=== PATIENT | female | born 1970 | race Hispanic/Latino ===

== ENCOUNTER 2019-04-16 23:49 | Emergency (ER) | payer OTHER ==
[2019-04-17] MEDS ORDERED: ACETAMINOPHEN EXTRA STRENGTH 500 MG TABLET ONE (00:13)
[2019-04-17 00:38] LABS: BASOPHILS % (AUTO) 0.5 % (0.0-5.0); EOSINOPHILS % (AUTO) 1.7 % (0.0-8.0); HEMATOCRIT 35.7 % (36-48); LYMPHOCYTES % (AUTO) 17.1 % (21.0-51.0); MEAN CORPUSCULAR HGB CONC 34.1 g/dL (32.0-36.0); MONOCYTES % (AUTO) 10.7 % (3.0-13.0); PLATELET COUNT (AUTO) 234 K/uL (130-400); RED BLOOD CELL COUNT(AUTO) 4.06 MIL/uL (4.00-5.50); RED CELL DISTRIBUTION WIDTH 14.3 % (11.0-15.5); WHITE BLOOD COUNT (AUTO) 12.8 K/uL (4.8-10.8)
[2019-04-17 00:44] LABS: CREATININE 0.7 mg/dL (0.5-1.5); POTASSIUM 3.3 mmol/L (3.5-5.1)
[2019-04-17 00:49] LABS: ALBUMIN 3.6 g/dL (3.5-5.0); BILIRUBIN,TOTAL 0.9 mg/dL (0.2-1.0); TOTAL PROTEIN, SERUM 7.1 g/dL (6.0-8.3)
[2019-04-17 01:06] LABS: B-TYPE NATRIURETIC PEPTIDE 88 pg/mL (0-100)
[2019-04-17 01:18] LABS: APPEARANCE,URINE Clear (CLEAR); BILIRUBIN,URINE Negative (NEGATIVE); COLOR,URINE Yellow (YELLOW); GLUCOSE, URINE (UA) Negative (NEGATIVE); HCG,QUAL RESULT NEGATIVE (NEGATIVE); KETONES,URINE Trace mg/dL (NEGATIVE); LEUKOCYTE ESTERASE ,URINE Negative (NEGATIVE); NITRATE,URINE Negative (NEGATIVE); OCCULT BLOOD,URINE Small (NEGATIVE); PROTEIN,URINE Negative (NEGATIVE)
[2019-04-17 01:30] LABS: BACTERIA,URINE Few /HPF (None Seen); WBC,URINE 0-1 /HPF (0-1)
[2019-04-17 01:31] LABS: CALCIUM OXALATE CRYSTALS,UR Moderate /LPF (None Seen); MUCUS,URINE Few LPF (None Seen)
[2019-04-17] MEDS ORDERED: POTASSIUM CHLORIDE 20 MEQ ERTAB PO ONE (03:12)
[2019-04-17] MEDS ORDERED: IBUPROFEN 400 MG TABLET ONE (03:13)
[2019-04-17] MEDS ORDERED: IBUPROFEN 200 MG TAB ONE (03:13)
== END 2019-04-17 03:30 | disposition home or self-care (01) ==
LOC: EDH 23:49
DX: B34.9 Viral infection, unspecified (principal); R50.9 Fever, unspecified; Z90.49 Acquired absence of other specified parts of digestive tract; Z98.890 Other specified postprocedural states
CPT/HCPCS: 36415; 71045; 80053; 81001; 81025; 83880; 85025; 87804

== ENCOUNTER 2021-02-16 10:31 | Inpatient (IN) | payer OTHER ==
[2021-02-16 11:19] LABS: BASOPHILS % (AUTO) 0.8 % (0.0-5.0); EOSINOPHILS % (AUTO) 1.6 % (0.0-8.0); HEMATOCRIT 38.3 % (36-48); LYMPHOCYTES % (AUTO) 34.2 % (21.0-51.0); MEAN CORPUSCULAR HEMOGLOBIN 29.1 pg (27.0-33.0); MEAN CORPUSCULAR HGB CONC 33.2 g/dL (32.0-36.0); MEAN CORPUSCULAR VOLUME 87.8 fL (79-99); NEUTROPHILS % (AUTO) 54.9 % (40.0-77.0); PLATELET COUNT (AUTO) 229 K/uL (130-400); RED BLOOD CELL COUNT(AUTO) 4.36 MIL/uL (4.00-5.50); RED CELL DISTRIBUTION WIDTH 13.9 % (11.0-15.5); WHITE BLOOD COUNT (AUTO) 8.9 K/uL (4.8-10.8)
[2021-02-16 11:23] LABS: CREATININE 0.6 mg/dL (0.5-1.5); POTASSIUM 3.5 mmol/L (3.5-5.1)
[2021-02-16 11:28] LABS: ALBUMIN 4.2 g/dL (3.5-5.0); BILIRUBIN,TOTAL 0.7 mg/dL (0.2-1.0); TOTAL PROTEIN, SERUM 8.2 g/dL (6.0-8.3)
[2021-02-16 11:57] LABS: B-TYPE NATRIURETIC PEPTIDE 137 pg/mL (0-100)
[2021-02-16] MEDS ORDERED: ASPIRIN 81MG TAB.CHEW ONE (13:30)
[2021-02-16] MEDS ORDERED: HEPARIN SODIUM 5000UNIT/ML 1ML VIAL ONE (16:26)
[2021-02-16] MEDS ORDERED: ACETAMINOPHEN 325 MG TAB ONE ×2 (16:28→23:18)
[2021-02-16] MEDS ORDERED: HEPARIN 25000 UNITS/250 ML D5W 250 ML IV ONE (16:28)
[2021-02-16] MEDS ORDERED: SODIUM CHLORIDE 0.9% 500ML 500 ML IV SCH (16:30)
[2021-02-16] MEDS ORDERED: ONDANSETRON HCL 4 MG/2 ML VIAL IVP PRN (16:45)
[2021-02-16] MEDS ORDERED: HEPARIN 25000 UNITS/D5W 250ML IV SCH (16:45)
[2021-02-16] MEDS ORDERED: PERFLUTREN PROTEIN-A MICROSPHR 0.22 MG/ML VIAL IV ONE (17:00)
[2021-02-16] MEDS ORDERED: FUROSEMIDE 10 MG/ML 2ML VIAL ONE (17:24)
[2021-02-16 17:49] LABS: BASOPHILS % (AUTO) 0.7 % (0.0-5.0); HEMATOCRIT 34.5 % (36-48); LYMPHOCYTES % (AUTO) 43.2 % (21.0-51.0); MEAN CORPUSCULAR HEMOGLOBIN 29.8 pg (27.0-33.0); MEAN CORPUSCULAR HGB CONC 33.9 g/dL (32.0-36.0); MEAN CORPUSCULAR VOLUME 87.8 fL (79-99); MONOCYTES % (AUTO) 7.5 % (3.0-13.0); NEUTROPHILS % (AUTO) 46.4 % (40.0-77.0); PLATELET COUNT (AUTO) 212 K/uL (130-400); RED BLOOD CELL COUNT(AUTO) 3.93 MIL/uL (4.00-5.50); RED CELL DISTRIBUTION WIDTH 13.9 % (11.0-15.5); WHITE BLOOD COUNT (AUTO) 8.8 K/uL (4.8-10.8)
[2021-02-16] MEDS ORDERED: METOPROLOL TARTRATE 25 MG TAB ONE (20:25)
[2021-02-16] MEDS ORDERED: ATORVASTATIN CALCIUM 40 MG TABLET ONE (20:25)
[2021-02-16] MEDS ORDERED: ACETYLCYSTEINE 600 MG CAPSULE ONE (20:38)
[2021-02-16] MEDS: ACETYLCYSTEINE 600 MG CAPSULE PO SCH (21:00)
[2021-02-16] MEDS ORDERED: METOPROLOL TARTRATE 25 MG TAB PO SCH (21:00)
[2021-02-16] MEDS: ATORVASTATIN CALCIUM 40 MG TABLET PO SCH (21:00)
[2021-02-16 23:05] LABS: INR 1.03 (0.85-1.15); PROTHROMBIN TIME 11.2 SEC (9.6-11.6)
[2021-02-16 23:06] LABS: PARTIAL THROMBOPLASTIN TIME 47.6 SEC (26.3-35.5)
[2021-02-17] VITALS (13 sets, daily range): BP systolic 93–122; BP diastolic 46–74
[2021-02-17 05:08] LABS: BASOPHILS % (AUTO) 0.7 % (0.0-5.0); EOSINOPHILS % (AUTO) 2.4 % (0.0-8.0); HEMATOCRIT 35.5 % (36-48); LYMPHOCYTES % (AUTO) 52.5 % (21.0-51.0); MEAN CORPUSCULAR HEMOGLOBIN 29.6 pg (27.0-33.0); MEAN CORPUSCULAR HGB CONC 33.8 g/dL (32.0-36.0); MEAN CORPUSCULAR VOLUME 87.4 fL (79-99); MONOCYTES % (AUTO) 7.3 % (3.0-13.0); NEUTROPHILS % (AUTO) 36.8 % (40.0-77.0); PLATELET COUNT (AUTO) 211 K/uL (130-400); RED BLOOD CELL COUNT(AUTO) 4.06 MIL/uL (4.00-5.50); RED CELL DISTRIBUTION WIDTH 13.9 % (11.0-15.5); WHITE BLOOD COUNT (AUTO) 9.1 K/uL (4.8-10.8)
[2021-02-17 05:18] LABS: HEMOGLOBIN A1C 5.9 % (4.0-6.0)
[2021-02-17 05:23] LABS: INR 1.05 (0.85-1.15); PROTHROMBIN TIME 11.4 SEC (9.6-11.6)
[2021-02-17 05:27] LABS: ALBUMIN 3.7 g/dL (3.5-5.0); CREATININE 0.7 mg/dL (0.5-1.5); MAGNESIUM 2.1 mg/dL (1.80-2.40); POTASSIUM 3.4 mmol/L (3.5-5.1); TOTAL PROTEIN, SERUM 7.2 g/dL (6.0-8.3)
[2021-02-17 05:29] LABS: B-TYPE NATRIURETIC PEPTIDE 157 pg/mL (0-100)
[2021-02-17 05:38] LABS: PARTIAL THROMBOPLASTIN TIME 92.1 SEC (26.3-35.5)
[2021-02-17] MEDS ORDERED: IOHEXOL-350 50ML VIAL IV ONE (07:53)
[2021-02-17] MEDS ORDERED: NICARDIPINE HCL 25 MG/10 ML ML IV ONE (07:53)
[2021-02-17] MEDS ORDERED: IOHEXOL 350 MG/ML 100ML INFUS..BTL IV ONE (07:53)
[2021-02-17] MEDS ORDERED: NITROGLYCERIN 2 MG/VIAL VIAL IV ONE (07:53)
[2021-02-17] MEDS ORDERED: HEPARIN SODIUM 1000UNIT/ML 10ML VIAL ONE (07:53)
[2021-02-17] MEDS ORDERED: MIDAZOLAM HCL 1 MG/ML 2ML VIAL ONE (07:53)
[2021-02-17] MEDS ORDERED: LIDOCAINE HCL 2% 20ML ONE (07:54)
[2021-02-17] MEDS ORDERED: FENTANYL CITRATE PF 50 MCG/1 ML 2ML VIAL ONE (07:54)
[2021-02-17] MEDS ORDERED: HEPARIN 25000 UNITS/250 ML D5W 0 ML IV ONE (08:41)
[2021-02-17] MEDS: ACETYLCYSTEINE 600 MG CAPSULE PO SCH ×2 (09:00→21:30)
[2021-02-17] MEDS: PANTOPRAZOLE SODIUM 40 MG TABLET.DR PO SCH (11:48)
[2021-02-17] MEDS: ACETAMINOPHEN 325 MG TAB PO PRN ×2 (12:27→21:30)
[2021-02-17] MEDS ORDERED: METO25TA6 PO (13:29)
[2021-02-17] MEDS ORDERED: ATOR40TA71 PO (13:29)
[2021-02-17] MEDS ORDERED: ASPI-1443 PO (13:29)
[2021-02-17] MEDS: ATORVASTATIN CALCIUM 40 MG TABLET PO SCH (21:30)
[2021-02-18 03:18] VITALS: BP 91/43
[2021-02-18 05:32] LABS: BASOPHILS % (AUTO) 0.7 % (0.0-5.0); EOSINOPHILS % (AUTO) 2.4 % (0.0-8.0); HEMATOCRIT 35.5 % (36-48); LYMPHOCYTES % (AUTO) 40.8 % (21.0-51.0); MEAN CORPUSCULAR HEMOGLOBIN 29.6 pg (27.0-33.0); MEAN CORPUSCULAR HGB CONC 33.2 g/dL (32.0-36.0); NEUTROPHILS % (AUTO) 46.7 % (40.0-77.0); PLATELET COUNT (AUTO) 209 K/uL (130-400); RED BLOOD CELL COUNT(AUTO) 3.99 MIL/uL (4.00-5.50); RED CELL DISTRIBUTION WIDTH 13.9 % (11.0-15.5); WHITE BLOOD COUNT (AUTO) 8.2 K/uL (4.8-10.8)
[2021-02-18 05:51] LABS: CREATININE 0.7 mg/dL (0.5-1.5); MAGNESIUM 2.1 mg/dL (1.80-2.40); POTASSIUM 3.9 mmol/L (3.5-5.1); THYROID STIMULATING HORMONE 3.33 uIU/mL (0.36-3.74)
[2021-02-18 08:34] VITALS: BP 132/62
[2021-02-18] MEDS: FUROSEMIDE 20 MG TABLET PO SCH (08:36)
[2021-02-18] MEDS: METOPROLOL SUCCINATE 50 MG TAB.SR.24H PO SCH (08:36)
[2021-02-18] MEDS: ACETYLCYSTEINE 600 MG CAPSULE PO SCH (08:36)
[2021-02-18] MEDS: PANTOPRAZOLE SODIUM 40 MG TABLET.DR PO SCH (08:36)
[2021-02-18] MEDS: POTASSIUM CHLORIDE 20 MEQ ERTAB PO SCH (08:38)
[2021-02-18] MEDS: LOSARTAN 50 MG TABLET PO SCH (08:39)
[2021-02-18] MEDS ORDERED: LISINOPRIL 10 MG TABLET PO SCH (09:00)
[2021-02-18 12:00] VITALS: BP 115/72
[2021-02-18 17:20] VITALS: BP 115/67
[2021-02-18 21:13] VITALS: BP 103/50
[2021-02-18] MEDS: ATORVASTATIN CALCIUM 20 MG TABLET PO SCH (22:20)
[2021-02-18] MEDS: ACETAMINOPHEN 325 MG TAB PO PRN (22:21)
[2021-02-19 00:28] VITALS: BP 103/54
[2021-02-19 06:40] VITALS: BP 104/62
[2021-02-19 07:28] LABS: BASOPHILS % (AUTO) 0.7 % (0.0-5.0); EOSINOPHILS % (AUTO) 2.4 % (0.0-8.0); HEMATOCRIT 37.5 % (36-48); LYMPHOCYTES % (AUTO) 43.9 % (21.0-51.0); MEAN CORPUSCULAR HEMOGLOBIN 29.3 pg (27.0-33.0); MEAN CORPUSCULAR HGB CONC 32.5 g/dL (32.0-36.0); MEAN CORPUSCULAR VOLUME 90.1 fL (79-99); MONOCYTES % (AUTO) 7.6 % (3.0-13.0); NEUTROPHILS % (AUTO) 44.9 % (40.0-77.0); PLATELET COUNT (AUTO) 219 K/uL (130-400); RED BLOOD CELL COUNT(AUTO) 4.16 MIL/uL (4.00-5.50); RED CELL DISTRIBUTION WIDTH 14.1 % (11.0-15.5); WHITE BLOOD COUNT (AUTO) 8.4 K/uL (4.8-10.8)
[2021-02-19 07:36] LABS: CREATININE 0.7 mg/dL (0.5-1.5); POTASSIUM 4.1 mmol/L (3.5-5.1)
[2021-02-19] MEDS ORDERED: CLONAZEPAM 1 MG TABLET PO SCH (08:08)
[2021-02-19] MEDS: FUROSEMIDE 20 MG TABLET PO SCH (08:32)
[2021-02-19] MEDS: LOSARTAN 50 MG TABLET PO SCH (08:32)
[2021-02-19] MEDS: METOPROLOL SUCCINATE 50 MG TAB.SR.24H PO SCH (08:32)
[2021-02-19] MEDS: PANTOPRAZOLE SODIUM 40 MG TABLET.DR PO SCH (08:32)
[2021-02-19] MEDS: POTASSIUM CHLORIDE 20 MEQ ERTAB PO SCH (08:33)
[2021-02-19] MEDS: LACTULOSE 20 GM/30 ML UDCUP PO SCH ×2 (12:10→15:12)
[2021-02-19 15:15] VITALS: BP 123/60
[2021-02-19 20:16] VITALS: BP 142/88
[2021-02-19] MEDS: ATORVASTATIN CALCIUM 20 MG TABLET PO SCH (20:58)
[2021-02-19] MEDS: ACETAMINOPHEN 325 MG TAB PO PRN (20:59)
[2021-02-20 00:24] VITALS: BP 93/52
[2021-02-20 04:24] VITALS: BP 94/53
[2021-02-20 04:47] LABS: HEMATOCRIT 36.8 % (36-48); MEAN CORPUSCULAR HEMOGLOBIN 28.5 pg (27.0-33.0); MEAN CORPUSCULAR HGB CONC 32.1 g/dL (32.0-36.0); MEAN CORPUSCULAR VOLUME 88.9 fL (79-99); RED BLOOD CELL COUNT(AUTO) 4.14 MIL/uL (4.00-5.50); RED CELL DISTRIBUTION WIDTH 13.6 % (11.0-15.5); WHITE BLOOD COUNT (AUTO) 10.2 K/uL (4.8-10.8)
[2021-02-20 04:51] LABS: CREATININE 0.8 mg/dL (0.5-1.5); POTASSIUM 4.1 mmol/L (3.5-5.1)
[2021-02-20 08:00] VITALS: BP 100/63
[2021-02-20] MEDS ORDERED: SPIRONOLACTONE 25 MG TAB PO SCH (09:00)
[2021-02-20] MEDS: FUROSEMIDE 20 MG TABLET PO SCH (10:19)
[2021-02-20] MEDS: LOSARTAN 50 MG TABLET PO SCH (10:19)
[2021-02-20] MEDS: PANTOPRAZOLE SODIUM 40 MG TABLET.DR PO SCH (10:19)
[2021-02-20] MEDS: METOPROLOL SUCCINATE 50 MG TAB.SR.24H PO SCH (10:19)
[2021-02-20 11:12] LABS: ROCKY MT SPOTTED FEVER IGG <1:64 (Neg:<1:64); TYPHUS FEVER AB IGG <1:64 (Neg:<1:64)
[2021-02-20 11:46] VITALS: BP 112/59
[2021-02-20] MEDS ORDERED: METO50TA9 PO (12:17)
[2021-02-20] MEDS ORDERED: SPIR25TA PO (12:17)
[2021-02-20] MEDS ORDERED: LOSA50TA2 PO (12:17)
[2021-02-20] MEDS ORDERED: FURO20TA6 PO (12:17)
== END 2021-02-20 14:32 | disposition home or self-care (01) | DRG 287 ==
LOC: EDH 10:31 → EDHIP 16:15 → 4BH 02-17 10:49
PROVIDERS: ADMIT Internal Medicine Nephrology; ATTEND Internal Medicine Nephrology
PROC: 4A023N7 Measurement of Cardiac Sampling and Pressure, Left Heart, Percutaneous Approach (ICD-10-PCS; principal; 2021-02-17)
PROC: B2111ZZ Fluoroscopy of Multiple Coronary Arteries using Low Osmolar Contrast (ICD-10-PCS; 2021-02-17)
PROC: B41F1ZZ Fluoroscopy of Right Lower Extremity Arteries using Low Osmolar Contrast (ICD-10-PCS; 2021-02-17)
DX: I42.0 Dilated cardiomyopathy (principal); I44.7 Left bundle-branch block, unspecified; E87.70 Fluid overload, unspecified; E66.9 Obesity, unspecified; I51.3 Intracardiac thrombosis, not elsewhere classified; I50.9 Heart failure, unspecified; R06.01 Orthopnea; Z20.822 Contact with and (suspected) exposure to COVID-19; Z79.899 Other long term (current) drug therapy; Z82.0 Family history of epilepsy and other diseases of the nervous system; Z80.8 Family history of malignant neoplasm of other organs or systems; Z82.49 Family history of ischemic heart disease and other diseases of the circulatory system
CPT/HCPCS: 36415; 71045; 80048; 80053; 80061; 83036; 83735; 83880; 84443; 84484; 85025; 85027; 85347; 85610; 85730; 86038; 86160; 86215; 86235; 86255; 86431; 86603; 86658; 86665; 86747; 86757; 93005; 93308; 93458; 99156; 99157; C1760; C1769; C1894; G0378; J1644; J1940; J2250; J2405; J3010; J3490; Q9967

== ENCOUNTER → 2021-02-16 | Outpatient (CLI) | payer OTHER ==
[~2021-02-16] MED LIST: ASPI-1443 PO; ATOR40TA71 PO; METO25TA6 PO
== END | disposition home or self-care (01) ==
LOC: SHCH 09:05
PROVIDERS: ATTEND Internal Medicine
DX: I34.0 Nonrheumatic mitral (valve) insufficiency (principal); R94.31 Abnormal electrocardiogram [ECG] [EKG]; R11.10 Vomiting, unspecified
CPT/HCPCS: 93306; 93356

== ENCOUNTER 2022-03-23 00:07 | Observation (INO) | payer OTHER ==
[~2022-03-23] VITALS: Ht 162.6 cm; Wt 89.0 kg
[~2022-03-23 00:07] MED LIST changes: +FURO20TA6 PO; +LOSA50TA2 PO; -METO25TA6 PO; +METO50TA9 PO; +SPIR25TA PO
[2022-03-23 00:36] LABS: BASOPHILS % (AUTO) 0.5 % (0.0-5.0); EOSINOPHILS % (AUTO) 1.8 % (0.0-8.0); LYMPHOCYTES % (AUTO) 37.4 % (21.0-51.0); MEAN CORPUSCULAR HGB CONC 33.3 g/dL (32.0-36.0); MONOCYTES % (AUTO) 8.3 % (3.0-13.0); NEUTROPHILS % (AUTO) 51.5 % (40.0-77.0); PLATELET COUNT (AUTO) 210 K/uL (130-400); RED CELL DISTRIBUTION WIDTH 14.6 % (11.0-15.5); WHITE BLOOD COUNT (AUTO) 12.8 K/uL (4.8-10.8)
[2022-03-23 00:44] LABS: CREATININE 0.7 mg/dL (0.5-1.5); POTASSIUM 3.4 mmol/L (3.5-5.1)
[2022-03-23 00:49] LABS: ALBUMIN 3.5 g/dL (3.5-5.0); BILIRUBIN,TOTAL 0.4 mg/dL (0.2-1.0); TOTAL PROTEIN, SERUM 7.4 g/dL (6.0-8.3)
[2022-03-23] MEDS ORDERED: ASPIRIN 81MG CHEW TAB ONE (01:02)
[2022-03-23] MEDS ORDERED: ACETAMINOPHEN 325 MG TAB PO PRN (04:00)
[2022-03-23] MEDS ORDERED: MORPHINE 2 MG SYG IV PRN (04:00)
[2022-03-23] MEDS ORDERED: MORPHINE 4 MG SYG IV PRN (04:00)
[2022-03-23] MEDS ORDERED: ASPIRIN 81MG CHEW TAB PO ONE (04:00)
[2022-03-23] MEDS ORDERED: ONDANSETRON 4MG INJ IV PRN (04:00)
[2022-03-23] MEDS ORDERED: NITROGLYCERIN 1GM OINT 1 INCH/1GM TD SCH (04:00)
[2022-03-23 04:17] LABS: APPEARANCE,URINE Clear (CLEAR); BILIRUBIN,URINE Negative (NEGATIVE); COLOR,URINE Yellow (YELLOW); GLUCOSE, URINE (UA) >=1000 mg/dL (NEGATIVE); KETONES,URINE Negative (NEGATIVE); LEUKOCYTE ESTERASE ,URINE Negative (NEGATIVE); NITRATE,URINE Positive (NEGATIVE); OCCULT BLOOD,URINE Negative (NEGATIVE); PROTEIN,URINE Negative (NEGATIVE)
[2022-03-23] MEDS ORDERED: SACU1TAB PO (04:28)
[2022-03-23] MEDS ORDERED: SPIR25TA PO (04:28)
[2022-03-23] MEDS ORDERED: FURO20TA4 PO (04:28)
[2022-03-23] MEDS ORDERED: IVAB5TAB PO (04:28)
[2022-03-23] MEDS ORDERED: METO50TA9 PO (04:28)
[2022-03-23] MEDS ORDERED: DAPA10TA PO (04:28)
[2022-03-23 04:39] LABS: BACTERIA,URINE Many /HPF (None Seen); RBC,URINE None Seen /HPF (0-1)
[2022-03-23] MEDS ORDERED: POTASSIUM BICARB/CIT AC 25 MEQ TABLET.EFF PO ONE (06:00)
[2022-03-23] MEDS: NITROGLYCERIN 1GM OINT 1 INCH/1GM TD SCH ×3 (06:30→21:06)
[2022-03-23] MEDS: ASPIRIN 81MG CHEW TAB PO SCH (08:52)
[2022-03-23] MEDS: FAMOTIDINE 20MG VIAL IV SCH (08:52)
[2022-03-23] MEDS: ENOXAPARIN SODIUM 40 MG/0.4 ML SYRINGE SQ SCH (08:53)
[2022-03-23] MEDS ORDERED: ASPIRIN 81MG CHEW TAB PO SCH (09:00)
[2022-03-23 09:15] VITALS: BP 100/59
[2022-03-23 12:00] VITALS: BP 105/51
[2022-03-23 14:00] VITALS: BP 86/42
[2022-03-23 16:55] VITALS: BP 118/63
[2022-03-23] MEDS ORDERED: CEFTRIAXONE 1G VIAL IVP SCH (17:30)
[2022-03-23 19:00] VITALS: BP 95/42
[2022-03-23] MEDS: SACUBITRIL/VALSARTAN 1 EACH TABLET PO SCH (21:00)
[2022-03-23] MEDS: IVABRADINE HCL 5 MG TABLET PO SCH (21:05)
[2022-03-23] MEDS: FUROSEMIDE 20 MG TABLET PO SCH (21:06)
[2022-03-24] VITALS: BP 97/43
[2022-03-24 04:00] VITALS: BP 94/48
[2022-03-24 04:28] LABS: BASOPHILS % (AUTO) 0.8 % (0.0-5.0); EOSINOPHILS % (AUTO) 2.3 % (0.0-8.0); LYMPHOCYTES % (AUTO) 35.8 % (21.0-51.0); MEAN CORPUSCULAR HGB CONC 32.7 g/dL (32.0-36.0); MEAN CORPUSCULAR VOLUME 88.7 fL (79-99); MONOCYTES % (AUTO) 8.9 % (3.0-13.0); NEUTROPHILS % (AUTO) 51.4 % (40.0-77.0); PLATELET COUNT (AUTO) 199 K/uL (130-400); RED BLOOD CELL COUNT(AUTO) 4.17 MIL/uL (4.00-5.50); RED CELL DISTRIBUTION WIDTH 14.6 % (11.0-15.5); WHITE BLOOD COUNT (AUTO) 9.9 K/uL (4.8-10.8)
[2022-03-24 04:53] LABS: ALBUMIN 3.5 g/dL (3.5-5.0); BILIRUBIN,TOTAL 0.8 mg/dL (0.2-1.0); CREATININE 0.7 mg/dL (0.5-1.5); MAGNESIUM 2.2 mg/dL (1.80-2.40); PHOSPHORUS 3.3 mg/dL (2.5-4.9); POTASSIUM 3.7 mmol/L (3.5-5.1); TOTAL PROTEIN, SERUM 7.3 g/dL (6.0-8.3)
[2022-03-24] MEDS: NITROGLYCERIN 1GM OINT 1 INCH/1GM TD SCH (05:34)
[2022-03-24] MEDS: FUROSEMIDE 20 MG TABLET PO SCH (08:23)
[2022-03-24] MEDS: ASPIRIN 81MG CHEW TAB PO SCH (08:23)
[2022-03-24] MEDS: FAMOTIDINE 20MG VIAL IV SCH (08:23)
[2022-03-24] MEDS: ENOXAPARIN SODIUM 40 MG/0.4 ML SYRINGE SQ SCH (08:24)
[2022-03-24] MEDS: SACUBITRIL/VALSARTAN 1 EACH TABLET PO SCH (08:36)
[2022-03-24] MEDS: IVABRADINE HCL 5 MG TABLET PO SCH (08:37)
[2022-03-24 10:13] VITALS: BP 122/53
[2022-03-24 12:46] VITALS: BP 89/40
[2022-03-24 16:38] VITALS: BP 122/75
== END 2022-03-24 17:47 | disposition home or self-care (01) ==
LOC: EDH 00:07 → EDHIP 03:33 → 4DH 08:27
PROVIDERS: ADMIT Hospitalist; ATTEND Hospitalist
DX: R07.9 Chest pain, unspecified (principal); N39.0 Urinary tract infection, site not specified; B96.20 Unspecified Escherichia coli [E. coli] as the cause of diseases classified elsewhere; E87.6 Hypokalemia; I11.0 Hypertensive heart disease with heart failure; I50.9 Heart failure, unspecified; I25.10 Atherosclerotic heart disease of native coronary artery without angina pectoris; R60.0 Localized edema; I42.9 Cardiomyopathy, unspecified; I49.3 Ventricular premature depolarization; Z79.82 Long term (current) use of aspirin; Z95.0 Presence of cardiac pacemaker; Z79.899 Other long term (current) drug therapy
CPT/HCPCS: 36415 ×2; 71045; 80053 ×2; 81001; 83735; 83880; 84100; 84484 ×4; 85025 ×2; 87077; 87088; 87186; 93005; 93971; 96372 ×2; 96374; 96375; 96376; 99285; G0378 ×38; J0696; J1650 ×2; J3490 ×2

== ENCOUNTER 2022-07-10 08:18 | Emergency (ER) | payer OTHER ==
[~2022-07-10] VITALS: Ht 152.4 cm; Wt 90.7 kg
[~2022-07-10 08:18] MED LIST changes: -ASPI-1443 PO; -ATOR40TA71 PO; +DAPA10TA PO; -FURO20TA6 PO; +IVAB5TAB PO; -LOSA50TA2 PO; -METO50TA9 PO; +SACU1TAB PO; -SPIR25TA PO
[2022-07-10 08:19] VITALS: BP 121/87
[2022-07-10] MEDS ORDERED: KETOROLAC 60 MG VIAL (30MG/ML) IM ONE (09:00)
[2022-07-10] MEDS ORDERED: ACET-2079 PO (10:04)
== END 2022-07-10 10:13 | disposition home or self-care (01) ==
LOC: EDH 08:18
DX: S52.592A Other fractures of lower end of left radius, initial encounter for closed fracture (principal); S20.212A Contusion of left front wall of thorax, initial encounter; I25.10 Atherosclerotic heart disease of native coronary artery without angina pectoris; I11.0 Hypertensive heart disease with heart failure; I50.9 Heart failure, unspecified; Z95.0 Presence of cardiac pacemaker; W01.0XXA Fall on same level from slipping, tripping and stumbling without subsequent striking against object, initial encounter; Y93.H2 Activity, gardening and landscaping; Y92.89 Other specified places as the place of occurrence of the external cause; Y99.8 Other external cause status; Z79.1 Long term (current) use of non-steroidal anti-inflammatories (NSAID); Z79.84 Long term (current) use of oral hypoglycemic drugs
CPT/HCPCS: 99284; 71046; 73110; 29125; 96372; 93005; J1885

== ENCOUNTER → 2022-08-04 | Outpatient (CLI) | payer OTHER ==
[~2022-08-04] MED LIST changes: +ACET-2079 PO
== END | disposition home or self-care (01) ==
LOC: OIH 14:23
PROVIDERS: ATTEND Internal Medicine
DX: I11.9 Hypertensive heart disease without heart failure (principal); E78.5 Hyperlipidemia, unspecified; Z95.0 Presence of cardiac pacemaker
CPT/HCPCS: 93306

== ENCOUNTER → 2022-09-29 | Outpatient (CLI) | payer OTHER | END | disposition home or self-care (01) | LOC: LAB 12:05 | PROVIDERS: ATTEND Internal Medicine Cardiovascular Disease | DX: I50.9 Heart failure, unspecified (principal) | CPT/HCPCS: 36415; 83880 ==

== ENCOUNTER 2023-07-06 10:36 | Emergency (ER) | payer OTHER ==
[~2023-07-06] VITALS: Ht 152.4 cm; Wt 86.6 kg
[2023-07-06] MEDS ORDERED: METOCLOPRAMIDE 10 MG/2 ML VIAL IVP ONE (11:30)
[2023-07-06] MEDS ORDERED: KETOROLAC 30MG VIAL (30MG/ML) IVP ONE (11:30)
[2023-07-06] MEDS ORDERED: FAMOTIDINE 20MG VIAL IV ONE (11:30)
[2023-07-06 11:35] LABS: BASOPHILS # (AUTO) 0.06 K/uL (0.00-0.20); BASOPHILS % (AUTO) 0.7 % (0.0-5.0); EOSINOPHILS # (AUTO) 0.19 K/uL (0.00-0.70); EOSINOPHILS % (AUTO) 2.1 % (0.0-8.0); HEMATOCRIT 36.2 % (36-48); IMMATURE GRANULOCYTE ABSOLUTE 0.09 K/uL (0-1); LYMPHOCYTES # (AUTO) 2.7 K/uL (1.0-4.8); LYMPHOCYTES % (AUTO) 30.2 % (21.0-51.0); MEAN CORPUSCULAR HEMOGLOBIN 29.8 pg (27.0-33.0); MEAN CORPUSCULAR HGB CONC 33.1 g/dL (32.0-36.0); MEAN CORPUSCULAR VOLUME 89.8 fL (79-99); MONOCYTES # (AUTO) 0.7 K/uL (0.1-1.0); MONOCYTES % (AUTO) 7.9 % (3.0-13.0); NEUTROPHILS # (AUTO) 5.2 K/uL (1.8-7.7); NEUTROPHILS % (AUTO) 58.1 % (40.0-77.0); PLATELET COUNT (AUTO) 235 K/uL (130-400); RED BLOOD CELL COUNT(AUTO) 4.03 MIL/uL (4.00-5.50); RED CELL DISTRIBUTION WIDTH 14.1 % (11.0-15.5)
[2023-07-06 11:44] LABS: INR 0.93 (0.85-1.15); PROTHROMBIN TIME 10.4 SEC (9.6-11.6)
[2023-07-06 11:45] LABS: PARTIAL THROMBOPLASTIN TIME 27.1 SEC (26.3-35.5)
[2023-07-06 11:49] LABS: CREATININE 0.8 mg/dL (0.5-1.5); POTASSIUM 3.9 mmol/L (3.5-5.1)
[2023-07-06 11:52] LABS: ALBUMIN 3.8 g/dL (3.5-5.0); BILIRUBIN,TOTAL 0.4 mg/dL (0.2-1.0); TOTAL PROTEIN, SERUM 7.9 g/dL (6.0-8.3)
[2023-07-06 12:03] LABS: APPEARANCE,URINE CLEAR (CLEAR); BILIRUBIN,URINE NEGATIVE (NEGATIVE); COLOR,URINE COLORLESS (YELLOW); GLUCOSE, URINE (UA) NEGATIVE (NEGATIVE); KETONES,URINE NEGATIVE (NEGATIVE); LEUKOCYTE ESTERASE ,URINE 25 Leu/uL (NEGATIVE); NITRATE,URINE NEGATIVE (NEGATIVE); OCCULT BLOOD,URINE NEGATIVE (NEGATIVE); PROTEIN,URINE NEGATIVE (NEGATIVE); UROBILINOGEN,URINE 0.2 mg/dL (0.2-1.0)
[2023-07-06 12:09] LABS: ADD UA MICROSCOPIC YES
[2023-07-06 12:15] LABS: BACTERIA,URINE FEW /HPF (None Seen); SQUAMOUS EPITHELIAL CELL,UR RARE /HPF (0-2)
[2023-07-06 13:17] LABS: COVID19 (SARS ANTIGEN RAPID) PRESUMPTIVE NEGATIVE (NEGATIVE); INFLUENZA TYPE A Negative For Type A (NEGATIVE); INFLUENZA TYPE B Negative For Type B (NEGATIVE)
[2023-07-06] MEDS ORDERED: METO-296 PO (14:16)
[2023-07-06] MEDS ORDERED: CEPH500B PO (14:16)
[2023-07-06] MEDS ORDERED: CEFTRIAXONE 2GM VIAL IVPB ONE (14:30)
[2023-07-06 14:42] VITALS: BP 105/48; PULSE 86; RESP 18; O2SAT 99
== END 2023-07-06 14:54 | disposition home or self-care (01) ==
LOC: EDH 10:36
DX: G44.209 Tension-type headache, unspecified, not intractable (principal); N39.0 Urinary tract infection, site not specified; I50.9 Heart failure, unspecified; I25.10 Atherosclerotic heart disease of native coronary artery without angina pectoris; Z20.822 Contact with and (suspected) exposure to COVID-19; Z79.84 Long term (current) use of oral hypoglycemic drugs; Z90.49 Acquired absence of other specified parts of digestive tract; Z95.810 Presence of automatic (implantable) cardiac defibrillator; Z79.899 Other long term (current) drug therapy; Z98.890 Other specified postprocedural states
CPT/HCPCS: 99285; 96374; 96375; 70450; 87426; 82550; 84484; 80053; 85025; 85610; 85730; 87040 ×2; 87077; 87088; 87186; 87804 ×2; 83605; 81001; 36415; J3490; J0696; J1885; J2765

== ENCOUNTER → 2024-01-10 | Outpatient (CLI) | payer OTHER ==
[~2024-01-10] MED LIST changes: +CEPH500B PO; +GADOTERATE MEGLUMINE 10 MMOL/20 ML VIAL IV ONE; +METO-296 PO
== END | disposition home or self-care (01) ==
LOC: RAH 09:56
PROVIDERS: ATTEND Family Medicine
DX: Z12.31 Encounter for screening mammogram for malignant neoplasm of breast (principal)
CPT/HCPCS: 77067; A9575

== ENCOUNTER → 2024-02-04 | Outpatient (CLI) | payer OTHER ==
[~2024-02-04] MED LIST changes: -GADOTERATE MEGLUMINE 10 MMOL/20 ML VIAL IV ONE
== END ==
LOC: SHCH 08:02
PROVIDERS: ATTEND Internal Medicine Cardiovascular Disease
DX: I12.9 Hypertensive chronic kidney disease with stage 1 through stage 4 chronic kidney disease, or unspecified chronic kidney disease (principal); N18.9 Chronic kidney disease, unspecified; I42.8 Other cardiomyopathies
CPT/HCPCS: 93306

== ENCOUNTER → 2024-02-15 | Outpatient (CLI) | payer OTHER ==
[2024-02-15 21:38] VITALS: PULSE 72; RESP 12
[2024-02-15 22:20] VITALS: PULSE 70; RESP 14
[2024-02-15 22:58] VITALS: PULSE 70; RESP 12
[2024-02-15 23:34] VITALS: PULSE 78; RESP 12
[2024-02-16] VITALS (11 sets, daily range): PULSE 70–80; RESP 12–16
== END | disposition home or self-care (01) ==
LOC: SLP 20:35
PROVIDERS: ATTEND Internal Medicine Cardiovascular Disease
DX: G47.33 Obstructive sleep apnea (adult) (pediatric) (principal)
CPT/HCPCS: 95810